=== PATIENT | male | born 2005 | race Caucasian/White ===

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

== ENCOUNTER 2024-11-02 10:54 | Day surgery (SDC) | payer OTHER, BC ==
[~2024-11-02] VITALS: Ht 182.9 cm; Wt 100.5 kg
[~2024-11-02 10:54] MED LIST changes: +Dexmedetomidine HCL 200 MCG / 2 ML ONE; +EPINEPhrine HCl 1 MG/ML 1ML Amp ONE
[2024-11-02] MEDS ORDERED: Lactated Ringer's 1,000 ML IV ONE ×3 (11:00→13:58)
[2024-11-02] MEDS ORDERED: CeFAZolin Sodium 2,000 MG VIAL ONE (11:00)
[2024-11-02] MEDS ORDERED: Tranexamic Acid 100 ML IV ONE (11:01)
[2024-11-02] MEDS ORDERED: Prinivil10 MG PO (11:13)
[2024-11-02] MEDS ORDERED: Ketorolac Tromethamine 30mg Vial ONE (11:14)
[2024-11-02] MEDS ORDERED: Midazolam HCl 1MG / ML 2ML Vial ONE (11:14)
[2024-11-02] MEDS ORDERED: propofoL 20 ML IV ONE (11:14)
[2024-11-02] MEDS ORDERED: SERT50 PO (11:14)
[2024-11-02] MEDS ORDERED: Lidocaine 2%-Epineph 1:200000 20 ML SDV ONE (11:14)
[2024-11-02] MEDS ORDERED: FentaNYL Citrate 50 MCG/ML 2 ML Injection ONE ×2 (11:14→15:11)
[2024-11-02] MEDS ORDERED: Dexamethasone Sod Phos 10 MG/ML 1ML VIAL ONE (11:15)
[2024-11-02] MEDS ORDERED: Ondansetron HCl 2 MG / ML 2ML Vial ONE (11:15)
--- NOTE | 2024-11-02 12:03 | NUR ---
11/02/24 1203 RAMEZ BRANDON T/O 1150 FOR LEFT FEMORAL BLOCK W/ DR HAZEL VERSED AND FENTANYL, PRESIDEX GIVEN IV BY DR HAZEL @1152 HR 68 O2 100% VIA NC O2 3L BLOCK STARTED:1159 END: 1201 O2 100 HR82
[2024-11-02] MEDS ORDERED: Bupivacaine 0.5% W/EPI 1:200000 SDV 30 ML Vial ONE (12:22)
[2024-11-02] MEDS ORDERED: HYDROmorphone HCl/Pf 1MG SYR ONE (14:24)
--- NOTE | 2024-11-02 14:55 | NUR ---
11/02/24 1455 Smitha Gregory PT ASLEEP UPON ARRIVAL TO PACU, VSS. ROOM AIR. LEFT TOES PINK, DRY AND WARM. LEFT PEDAL PULSE PALPABLE. LEFT TOE CAP REFILL <3 SECONDS.
--- NOTE | 2024-11-02 15:30 | NUR ---
11/02/24 1530 Smitha Gregory PT TO STEP DOWN. DROWSY, AROUSABLE TO VOICE. ANSWERS QUESTIONS AND FOLLOWS COMMANDS. DENIES NAUSEA. STATES PAIN IS 5/10 AND STATES IT'S TOLERABLE. DECLINES PAIN MEDICATION AT THIS TIME. PT DEEP BREATHING. ABLE TO MOVE LEFT TOES. LEFT TOES PINK, DRY AND WARM. LEFT PEDAL PULSE PALPABLE. CAP REFILL <3 SECONDS ON LEFT FOOT
[2024-11-02] MEDS ORDERED: OxyCODONE HCL 5 MG TAB ONE (15:55)
[2024-11-02 16:29] VITALS: BP 126/66
== END 2024-11-02 16:38 | disposition home or self-care (01) ==
LOC: ORSCSDS 10:54
PROVIDERS: Orthopaedic Surgery Sports Medicine
PROC: 0MRP0KZ Replacement of Left Knee Bursa and Ligament with Nonautologous Tissue Substitute, Open Approach (ICD-10-PCS; principal; 2024-11-02 12:45)
DX: M22.02 Recurrent dislocation of patella, left knee (principal); M25.362 Other instability, left knee; W07.XXXA Fall from chair, initial encounter; I10 Essential (primary) hypertension; J45.909 Unspecified asthma, uncomplicated; F41.9 Anxiety disorder, unspecified; F32.A Depression, unspecified; Z79.899 Other long term (current) drug therapy; E66.9 Obesity, unspecified; Z68.30 Body mass index [BMI] 30.0-30.9, adult
CPT/HCPCS: A9270; C1713; C1762; J0171; J0690; J1100; J1171; J1885; J2250; J2405; J2704; J3010; J7120